=== PATIENT | male | born 1950 | race Caucasian/White ===

== ENCOUNTER 2016-11-28 11:20 | Outpatient (CLI) | payer MEDICARE ==
[2016-11-28 12:38] LABS: #Basophils 0.1 thou/uL (0.0-0.2); #Eosinphils 0.3 thou/uL (0.0-0.7); #Lymphocytes 1.5 thou/uL (1.20-3.40); #Monocytes 0.8 thou/uL (0.11-0.59); #Neutrophils 5.1 thou/uL (1.40-6.50); %Basophils 1.1 % (0.0-1.0); %Eosinophils 3.8 % (0.0-10.0); %Lymphocytes 19.2 % (21.0-51.0); %Monocytes 9.9 % (0.0-10.0); Bilirubin Negative (Negative); Blood, Urine Negative (Negative); Clarity Clear (Clear); Glucose, Urine (Dipstick) Negative (Negative); Hemoglobin 14.5 g/dL (14.0-18.0); Leukocyte Negative (Negative); Mean Corpuscular HGB CONC 33.9 g/dL (32.0-36.0); Mean Corpuscular Hemoglobin 31.6 pg (27.0-31.0); Mean Corpuscular Volume 93.2 fl (80.0-94.0); Mean Platelet Volume 7.4 fL (7.4-10.4); Nitrite Negative (Negative); Platelet Count 210 thou/uL (130-400); Protein, Urine (Dipstick) Negative (Neg-Trace); RBC Distribution Width 11.5 % (11.5-14.5); Specific Gravity, Urine 1.015 (1.005-1.030); Urobilinogen 0.2 mg/dL (0.2-1.0); White Blood Cell (WBC) Count 7.7 thou/uL (4.8-10.8)
[2016-11-28 13:08] LABS: ALT (SGPT) 18 U/L (8-55); AST (SGOT) 19 U/L (5-34); Albumin 4.3 g/dL (3.4-4.8); Alkaline Phosphatase 71 U/L (40-150); Anion Gap 14 mmol/L (10-20); BUN (Urea Nitrogen) 14 mg/dL (8.4-25.7); Bilirubin, Total 0.7 mg/dL (0.2-1.2); Calc. Creatinine Clearance 0 mL/min (70-130); Calcium 9.2 mg/dL (7.8-10.44); Carbon Dioxide 22 mmol/L (23-31); Cardiac Risk 3.9 (Less than 4.5); Chloride 105 mmol/L (98-107); Cholesterol 195 mg/dl (< 200 Desired); Estimated GFR-MDRD Greater than 90; Globulin 2.7 g/dL (2.4-3.5); Glucose 114 mg/dL (80-115); HDL Cholesterol 50 mg/dL (>60 Neg Risk); LDL Cholesterol, Calculated 136 mg/dL; Potassium 4.1 mmol/L (3.5-5.1); Sodium 137 mmol/L (136-145); Triglycerides 43 mg/dL (Less than 150)
== END 2016-11-28 11:21 | disposition home or self-care (01) ==
LOC: NAVSJIPCSP 11:20
PROVIDERS: ATTEND Internal Medicine
DX: Z12.6 Encounter for screening for malignant neoplasm of bladder (principal); K21.9 Gastro-esophageal reflux disease without esophagitis; E78.5 Hyperlipidemia, unspecified
CPT/HCPCS: 36415; 80053; 80061; 81003; 85025; G0103

== ENCOUNTER 2017-03-12 09:15 | Outpatient (CLI) | payer MEDICARE ==
[2017-03-12 12:53] LABS: Cardiac Risk 4.3 (Less than 4.5)
== END 2017-03-12 09:16 | disposition home or self-care (01) ==
LOC: NAVSJIPCSP 09:15
PROVIDERS: ATTEND Internal Medicine
DX: E78.5 Hyperlipidemia, unspecified (principal)
CPT/HCPCS: 36415; 80061